=== PATIENT | male | born 1955 | race Two or more races ===

== ENCOUNTER 2022-11-29 16:34 | Emergency (ER) | payer MEDICARE, OTHER ==
[~2022-11-29] VITALS: Ht 167.6 cm; Wt 69.7 kg
[2022-11-29] MEDS ORDERED: ACETAMINOPHEN 325 MG TAB PO ONE (20:45)
[2022-11-29 21:24] VITALS: BP 138/88; PULSE 80; RESP 16; TEMP 98.5; O2SAT 96
== END 2022-11-29 20:59 | disposition home or self-care (01) ==
LOC: ER 16:34
DX: S16.1XXA Strain of muscle, fascia and tendon at neck level, initial encounter (principal); M25.512 Pain in left shoulder; I10 Essential (primary) hypertension; V89.2XXA Person injured in unspecified motor-vehicle accident, traffic, initial encounter; Y93.89 Activity, other specified; Y92.89 Other specified places as the place of occurrence of the external cause; Y99.8 Other external cause status
CPT/HCPCS: 72040; 73030

== ENCOUNTER 2024-12-30 16:35 | Emergency (ER) | payer MEDICAID, MEDICARE ==
[~2024-12-30] VITALS: Ht 167.6 cm; Wt 72.0 kg
[2024-12-30 16:40] VITALS: BP 155/95; RESP 19; TEMP 98.4; O2SAT 98
[2024-12-30] MEDS: SODIUM CHLORIDE 0.9% 1,000 ML IV ONE (17:00)
[2024-12-30] MEDS: NITROGLYCERIN 0.4 MG SL TAB SL ONE (17:00)
--- NOTE | 2024-12-30 17:07 | ED.PDOC ---
HPI Comments HPI: 69-year-old male presents to the ED with a chief complaint of chest pain onset today (12/30/24) about 1 hour prior to ED arrival. Patient states he was shopping for a boat when he began experiencing left-sided chest pain, nonradiating, as well as nausea, dizziness. Patient is a poor historian. Denies shortness of breath, nausea, vomiting, diarrhea, headache, dysuria, hematuria, fever, chills. No other symptoms or modifying factors present at this time. Initial Vitals BP: 155/95 HR: 67 RR: 19 O2: 98% Temp: 98.4 F Past Medical History: HTN Past Surgical History: Denies Social History: Denies ETOH, smoking, and drug use. Medications: Denies Allergies: NKDA HPI: Poor Historian. REVIEW OF SYSTEMS: CONSTITUTIONAL: Denies acute: fever, diaphoresis, chills, generalized weakness. HEAD: Denies acute: headache, photophobia Eyes: Denies acute: Double vision, vision loss, eye pain, eye discharge. EARS: Denies acute: tinnitus, hearing loss, ear discharge, ear pain, THROAT: Denies acute: sore throat, swelling, difficulty swallowing , pain with swallowing, change in voice. NECK: Denies acute: neck pain, neck swelling, stiff neck. HEART: Denies acute : palpitations, LUNGS: Denies acute: SOB, wheezing, cough, hemoptysis ABDOMEN: Denies acute: abdominal pain, Nausea, Vomiting, diarrhea, melena , hematemesis, hematochezia SKIN: Denies acute: rash, redness, lesions, itchiness. EXTREMITIES: Denies acute: calf pain, numbness, tingling, weakness, denies pain in extremity. Denies acute: Low back pain. Neuro: Denies acute: focal neurological deficit, motor or sensory focal neurological deficit, tremors, seizure like activity, confusion, change in mental status, loss of bowel or bladder function, cauda equina like symptoms. : Denies acute: dysuria, hematuria, flank pain, increase in urinary frequency. PSYCH: Denies acute: hallucination, suicidal ideation, homicidal ideation. PHYSICAL EXAM: General: ----fqts-cy-uthrsago----acute distress, awake and alert. Head: normocephalic, atraumatic. Neck: supple, trachea is midline, no swelling. Throat: Normal phonation. Eyes:, no erythema, no purulent discharge, no proptosis, no icterus. Heart: regular rate, regular rhythm, no significant murmur appreciated. Lungs: no apparent respiratory distress, Able to speak in full sentences. No wheezing, no rhonchi, no crackles. No stridors Clear to auscultation bilaterally. Abdomen: non tender to palpation, non distended, soft, no guarding, no rebound, + bowel sounds. Neuro: Awake, Alert, oriented to name, self, situation, follows commands GCS=15. Speech is normal. Skin: no petechia, no purpura, no cyanosis, non-pale, not jaundice. Lower extremities: --no - Pitting edema no deformity, no focal swelling, no calf TTP. Makes eye contact. moves all four extremities. Face: no apparent facial droop. ED COURSE: DISCLAIMER: This medical document was created using an electronic medical record system with voice recognition software and computerized dictation system. Although this document has been carefully reviewed, there might still be some phonetic and typographical errors. Occasional wrong-word or "sound-alike" substitutions may have occurred due to the inherent limitations of voice recognition software. These areas are purely typographical due to imperfections of the software programs and do not reflect any compromise in the patient's medical care. Please read the chart carefully and recognize, using context, where these substitutions have occurred. Chief Complaint: Chest Pain Time Seen by MD: 16:55 Primary Care Provider: NONE Reviewed Notes: Medications, Allergies Allergies: Coded Allergies: NO KNOWN ALLERGIES (Unverified , 11/29/22) Information Source: Patient Mode of Arrival: Wheelchair Severity: Moderate Timing: Hours Duration: Since onset Prehospital treatment: None Location: Chest (L) Radiation: No Radiation Quality: Sharp, Pressure Onset: At Rest Cardiac Risk Factors: HTN PE Risk Factors: None History of: None Modifying Factors: Nothing Past Medical History PAST MEDICAL HISTORY: HTN Surgical History: Denies all surgeries Family History Family History: Reviewed,noncontributory to illness Social History Smoker: Non-Smoker Alcohol: Denies ETOH Use Drugs: Denies Drug Use Lives In: Home EKG EKG : Pulse Rate (adult): 69 Cardiac Rhythm: NSR Was a procedure done? Was a procedure done?: No CP Differential Dx Differential Diagnosis: N/A Differential Diagnosis: Other (Ddx include but not limitied to gastritis, musculoskeletal pain, radiculopathy, atypical chest pain, dissection, aneurysm, ACS, unstable angina, hiatal hernia, GERD, anxiety, costochondritis, PE, pneumothroax, neoplasm, cardiac ischemia, drug abuse, anemia.) X-Ray, Labs, Meds, VS Vital Signs Date Time Temp Pulse Resp B/P (MAP) Pulse Ox O2 Delivery O2 Flow Rate FiO2 12/30/24 19:41 59 12/30/24 18:08 55 12/30/24 17:07 69 12/30/24 16:42 69 12/30/24 16:40 98.4 67 19 155/95 98 98.4 Lab Test 12/30/24 19:59 12/30/24 18:10 12/30/24 17:00 Range/Units Troponin I High Sensitivity 3 L < 3 L 3 L </=54 ng/L White Blood Count 15.1 H 4.4-10.8 10^3/uL Red Blood Count 5.46 4.5-5.90 10^6/uL Hemoglobin 16.4 13.5-17.5 g/dL Hematocrit 48.2 41.0-53.0 % Mean Corpuscular Volume 88.2 80.0-100.0 fL Mean Corpuscular Hemoglobin 30.0 28.0-32.0 pg Mean Corpuscular Hemoglobin Concent 34.0 32.0-36.0 g/dL Red Cell Distribution Width 13.7 11.8-14.3 % Platelet Count 246 140-450 10^3/uL Mean Platelet Volume 8.5 6.9-10.8 fL Neutrophils (%) (Auto) 88.4 H 37.0-80.0 % Lymphocytes (%) (Auto) 7.2 L 10.0-50.0 % Monocytes (%) (Auto) 3.6 0.0-12.0 % Eosinophils (%) (Auto) 0.6 0.0-7.0 % Basophils (%) (Auto) 0.2 0.0-2.0 % Neutrophils # (Auto) 13.4 H 1.6-8.6 10 ^3/uL Lymphocytes # (Auto) 1.1 0.4-5.4 10 ^3/uL Monocytes # (Auto) 0.5 0-1.3 10 ^3/uL Eosinophils # (Auto) 0.1 0-0.8 10 ^3/uL Basophils # (Auto) 0 0-0.2 10 ^3/uL Nucleated Red Blood Cells 0.1 % Sodium Level 141 136-145 mmol/L Potassium Level 3.8 3.5-5.1 mmol/L Chloride Level 106 98-107 mmol/L Carbon Dioxide Level 23 20-31 mmol/L Anion Gap 12 5-15 Blood Urea Nitrogen 10 9-23 mg/dL Creatinine 1.21 0.700-1.30 mg/dL Glomerular Filtration Rate Calc 66 >90 mL/min BUN/Creatinine Ratio 8.3 L 10.0-20.0 Serum Glucose 154 H 74-106 mg/dL Calcium Level 9.4 8.7-10.4 mg/dL Total Bilirubin 1.3 H 0.2-1.0 mg/dL Aspartate Amino Transferase (AST) 23 13-40 U/L Alanine Aminotransferase (ALT) 19 7-40 U/L Alkaline Phosphatase 111 46-116 U/L Total Protein 7.6 5.7-8.2 g/dL Albumin 4.6 3.2-4.8 g/dL [place] [id number] Ph: [phone] DIAGNOSTIC IMAGING Diagnostic Imaging Report : [id number] Signed PATIENT: ESTEBAN TELLES ACCT: [id number] UNIT: [id number] : 1955 LOC: ER ROOM / BED: / AGE / SEX: 69 / M ADM STATUS: REG ER SERVICE 51 ORDERING PHYSICIAN: RICCI MATTHEW DO PROCEDURE(s): CXRP - CHEST PORTABLE REASON: cp ORDER NUMBER(s): [id number], ACCESSION NUMBER(s): [id number] CHEST RADIOGRAPH Indication: cp Technique: Single frontal view of the chest was obtained Comparison: None FINDINGS: Lines and Tubes: None Lungs: No focal consolidation. Pleura: No effusion. No pneumothorax. Cardiomediastinal contours: Unremarkable Bones: No acute osseous abnormality. IMPRESSION: No acute cardiopulmonary disease. ATED BY: ORALIA SORTO DO DICTATED DATE/TIME: 12/30/241737 SIGNED BY: ORALIA SORTO DO SIGNED DATE/TIME: 12/30/241737 CC: Time of 1ST Reevaluation: 17:25 Reevaluation 1ST: Unchanged Patient Education/Counseling: Diagnosis, Treatment Family Education/Counseling: No Family Present Comments MDM: patient presented with the above HPI.---cardiac---workup was initiated. patient was found with the above mentioned diagnosis. the following medications were ordered: please refer to order lists of meds and tests obtained by myself Dr. Matthew. Patient ED course and VS have been stabilized. Patient has been reassessed in the ED and remained in a stable condition. Pertinent incidental findings were discussed with the patient and/or family. Patient has been observed in the ED adequate length of time to insure improvement/stability. Escalation of care considered: Consideration of escalation to observation or admission Patient was ADMITTED to the medicine team for further evaluation and treatment of their presentation. I was later informed that the patient eloped All the reports of any imaging studies that were ordered by myself were reviewed by myself. Departure 1 Departure Time of Disposition: 17:55 Impression: Primary Impression: Chest pain Disposition: ADMITTED INPATIENT Admit to: [facility] Condition: Guarded Discharged With: Self Critical Care Note Critical Care Time?: No Heart Score Heart Score: Heart Score Response (Comments) Value History Slightly Suspicious 0 EKG Normal 0 Age >65 2 Risk Factors 1 or 2 risk factors 1 Troponin Normal limit 0 Total 3 I personally scribed for RICCI MATTHEW DO ([email or web address]) on 12/30/24 at 17:07. Electronically submitted by Tori Butler ([email or web address]). I personally scribed for RICCI MATTHEW DO ([email or web address]) on 12/30/24 at 17:51. Electronically submitted by Tori Butler ([email or web address]). RICCI MATTHEW DO Dec 30, 2024 17:07
[2024-12-30 17:16] LABS: Hematocrit 48.2 % (41.0-53.0); Hemoglobin 16.4 g/dL (13.5-17.5); Mean Corpuscular Hemoglobin 30.0 pg (28.0-32.0); Mean Corpuscular Volume 88.2 fL (80.0-100.0); Nucleated Red Blood Cells % 0.1 %
[2024-12-30 17:36] LABS: Alanine Aminotransferase 19 U/L (7-40); Albumin 4.6 g/dL (3.2-4.8); Alkaline Phosphatase 111 U/L (46-116); Anion Gap 12 (5-15); BUN/Creatinine Ratio 8.3 (10.0-20.0); Blood Urea Nitrogen 10 mg/dL (9-23); Calcium 9.4 mg/dL (8.7-10.4); Carbon Dioxide 23 mmol/L (20-31); Chloride 106 mmol/L (98-107); Potassium 3.8 mmol/L (3.5-5.1); Sodium 141 mmol/L (136-145); Total Protein 7.6 g/dL (5.7-8.2)
[2024-12-30 17:39] LABS: Bilirubin, Total 1.3 mg/dL (0.2-1.0); Glucose 154 mg/dL (74-106)
--- NOTE | 2024-12-30 17:40 | DVH ---
CHEST RADIOGRAPH Indication: cp Technique: Single frontal view of the chest was obtained Comparison: None FINDINGS: Lines and Tubes: None Lungs: No focal consolidation. Pleura: No effusion. No pneumothorax. Cardiomediastinal contours: Unremarkable Bones: No acute osseous abnormality. IMPRESSION: No acute cardiopulmonary disease.
[2024-12-30] MEDS: ASPirin-EC 325mg tab PO ONE (19:30)
[2024-12-30 19:41] VITALS: PULSE 59
--- NOTE | 2024-12-30 19:43 | ECG ---
[facility] Test Date: 2024-12-30 Test Time: 19:41:57 Pat Name: ESTEBAN TELLES Department: [facility] ED Patient ID: [id number] Room: Gender: M Director General: : 1955 Requested By: EMERGENCY EMERGENCY Order Number: [id number] Reading MD: Cayetano Banks Measurements Intervals [place] Rate: 59 P: 66 IA: 144 QRS: -28 QRSD: 109 T: 28 QT: 410 QTc: 407 Interpretive Statements Sinus rhythm Borderline left axis deviation ST elevation, consider inferior injury Electronically Signed On 12-31-2024 17:00:34 PDT by Cayetano Banks Please click the below link to view image of tracing.
--- NOTE | 2024-12-31 07:38 | ECG ---
[facility] Test Date: 2024-12-30 Test Time: 16:42:46 Pat Name: ESTEBAN TELLES Department: [facility] ED Patient ID: [id number] Room: Gender: M Bodybuilder: ELLA : 1955 Requested By: EMERGENCY EMERGENCY Order Number: [id number] Reading MD: Cayetano Banks Measurements Intervals [place] Rate: 69 P: 37 MD: 147 QRS: -28 QRSD: 94 T: 28 QT: 418 QTc: 448 Interpretive Statements Sinus rhythm Borderline left axis deviation ST elevation, consider inferior injury Electronically Signed On 12-31-2024 17:00:28 PDT by Cayetano Banks Please click the below link to view image of tracing.
--- NOTE | 2024-12-31 07:38 | ECG ---
[facility] Test Date: 2024-12-30 Test Time: 18:08:21 Pat Name: ESTEBAN TELLES Department: [facility] ED Patient ID: [id number] Room: Gender: M Management Intern: ELLA : 1955 Requested By: EMERGENCY EMERGENCY Order Number: [id number] Reading MD: Cayetano Banks Measurements Intervals [place] Rate: 55 P: 44 CO: 140 QRS: -19 QRSD: 98 T: 22 QT: 410 QTc: 393 Interpretive Statements Sinus rhythm Borderline left axis deviation Electronically Signed On 12-31-2024 17:00:29 PDT by Cayetano Banks Please click the below link to view image of tracing.
== END 2024-12-31 05:03 | disposition left against medical advice (07) ==
LOC: ER 16:35
DX: R07.89 Other chest pain (principal); I10 Essential (primary) hypertension; Z79.899 Other long term (current) drug therapy
CPT/HCPCS: 36415; 71045; 80053; 84484; 85025; 93005